=== PATIENT | female | born 1960 | race Caucasian/White ===

== ENCOUNTER 2016-12-10 07:21 | Day surgery (SDC) | payer OTHER ==
[~2016-12-10 07:21] MED LIST: Lactated Ringers 1,000 ML IV SCH; Lidocaine 1%/Sod Bicarbonate in NS 8.4% 1 ML Syringe IV PRN; Sodium Chloride 0.9% 10 ML Syringe FLUSH PRN
--- NOTE | 2016-12-10 08:03 | PCM.PREANE ---
Preanesthetic Assessment - Anesthesia/Transfusion/Family Hx Anesthesia History: Prior Anesthesia Without Reaction Family History of Anesthesia Reaction: No - Review of Systems General: No Symptoms Pulmonary: No Symptoms Cardiovascular: No Symptoms Gastrointestinal: No symptoms Neurological: No Symptoms Other: Reports: Thyroid Problems (hypothyroidism ([place])- controlled with medications ), Depression - Physical Assessment NPO Status Date: 12/09/16 NPO Status Time: 18:30 O2 Sat by Pulse Oximetry: 97 Respiratory Rate: 16 Vital Signs: Last Vital Signs Temp 36.3 C 12/10/16 07:30 Pulse 89 12/10/16 07:30 Resp 16 12/10/16 07:30 BP 129/53 L 12/10/16 07:30 Pulse Ox 97 12/10/16 07:30 Height: 1.7 m Weight: 92.986 kg ASA Class: 2 Mental Status: Alert & Oriented x3 Airway Class: Mallampati = 2 Dentition: Reports: Normal Dentition Thyro-Mental Finger Breadths: 3 Mouth Opening Finger Breadths: 3 ROM/Head Extension: Full Lungs: Clear to auscultation, Normal respiratory effort Cardiovascular: Regular Rate, Regular Rhythm - Allergies Allergies/Adverse Reactions: Allergies Allergy/AdvReac Type Severity Reaction Status Date / Time No Known Allergies Allergy Verified 12/09/16 12:43 - Blood Blood Available: No Product(s) Available: None - Anesthesia Plan Pre-Op Medication Ordered: None - Acknowledgements Anesthesia Type Planned: General Anesthesia (LMA) Pt an Appropriate Candidate for the Planned Anesthesia: Yes Alternatives and Risks of Anesthesia Discussed w Pt/Guardian: Yes Pt/Guardian Understands and Agrees with Anesthesia Plan: Yes PreAnesthesia Questionnaire HEENT History: Reports: Allergic Rhinitis, 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) Other HEENT History: Candidiasis of mouth Cardiovascular History: Reports: None Respiratory History: Reports: None Gastrointestinal History: Reports: None Genitourinary History: Reports: Urinary Incontinence, 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) Other Genitourinary History: Dysuria, stress urinary incontinence, urinary frequency, nocturia 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: , 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) Other OB/BYN History: HPV, 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, bacterial vaginosis, post menopausal bleeding Musculoskeletal History: Reports: 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) Other Musculoskeletal History: Bilateral hip flexor tightness, right plantar fasciitis, trigger thumb, incision tendon sheath of finger, carpal tunnel, lumbago Neurological History: Other Neuro History: Lumbago Psychiatric History: Reports: Depression Endocrine/Metabolic History: Reports: Hypothyroidism Other Endocrine/Metabolic History: Enlarged thyroid Hematologic History: Reports: None Immunologic History: Reports: None Oncologic (Cancer) History: Reports: None Dermatologic History: Reports: None - Infectious Disease History Infectious Disease History: Reports: Human Papilloma Virus (HPV) - Past Surgical History Head Surgeries/Procedures: Reports: None HEENT Surgical History: Reports: None Cardiovascular Surgical History: Reports: None Respiratory Surgical History: Reports: None GI Surgical History: Reports: Appendectomy Female Surgical History: Reports: Section Endocrine Surgical History: Reports: None Neurological Surgical History: Reports: None Musculoskeletal Surgical History: Reports: 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) Other Musculoskeletal Surgeries/Procedures:: Carpal tunnel release Oncologic Surgical History: Reports: None Dermatological Surgical History: Reports: None - SUBSTANCE USE Smoking Status *Q: Current Every Day Smoker (20years 1ppd) Tobacco Use Within Last Twelve Months: Cigarettes Second Hand Smoke Exposure: No Days Per Week of Alcohol Use: 1 Number of Drinks Per Day: 0 Total Drinks Per Week: 0 Recreational Drug Use History: No - HOME MEDS Home Medications: Home Meds Amitriptyline [Elavil] 75 mg PO BEDTIME 06/07/14 [History] Ascorbate Calcium [Vitamin C] 500 mg PO BID 12/09/16 [History] Cholecalciferol (Vitamin D3) [Vitamin D3] 1,000 units PO BID 12/09/16 [History] Clotrimazole [Clotrimazole-3] 5 mg VG BEDTIME 12/09/16 [History] Escitalopram Oxalate [Lexapro] 20 mg PO DAILY 12/09/16 [History] Garlic 1 tab PO DAILY 12/09/16 [History] Immune Support. 7 tsp PO DAILY 12/09/16 [History] Levothyroxine 150 mcg PO DAILY 12/09/16 [History] Magnesium 200 mg PO BID 12/09/16 [History] Turmeric [Curcumin] 1 gm PO DAILY 12/09/16 [History] Vitamin B Complex 1 cap PO DAILY 12/09/16 [History] Zolpidem Tartrate [Ambien] 5 mg PO BEDTIME PRN 12/09/16 [History] buPROPion HCl [Wellbutrin Xl] 300 mg PO DAILY 12/09/16 [History] - CURRENT (IN HOUSE) MEDS Current Meds: Current Medications Lactated Ringer's (Ringers, Lactated) 1,000 mls @ 125 mls/hr IV ASDIRECTED DENIS Lidocaine/Sodium Bicarbonate (Buffered Lidocaine 1% In Ns 8.4%) 0.25 ml IV ONETIME PRN PRN Reason: Prior to IV Start Sodium Chloride (Saline Flush) 10 ml FLUSH ASDIRECTED PRN PRN Reason: Keep Vein Open
[2016-12-10] MEDS ORDERED: Ondansetron 4 MG/2 ML SDV ONE (08:20)
[2016-12-10] MEDS ORDERED: Propofol 200 MG/20 ML SDV ONE (08:20)
[2016-12-10] MEDS ORDERED: Lidocaine 1% 4 ML ONE (08:20)
[2016-12-10] MEDS ORDERED: Dexamethasone 4 MG/ML 5 ML MDV ONE (08:20)
[2016-12-10] MEDS ORDERED: Ketorolac 30 MG/ML SDV ONE (08:20)
[2016-12-10] MEDS ORDERED: Midazolam 1 MG/ML 2 ML SDV ONE (08:20)
[2016-12-10] MEDS ORDERED: fentaNYL 100 MCG/2 ML SDV ONE ×3 (08:20→10:07)
[2016-12-10] MEDS ORDERED: ePHEDrine/Normal Saline 25 MG/5 ML Syringe ONE (09:31)
[2016-12-10] MEDS ORDERED: ceFAZolin 1 GM Vial ONE (09:34)
[2016-12-10] MEDS ORDERED: Ondansetron 4 MG/2 ML SDV IVPUSH PRN (09:47)
[2016-12-10] MEDS ORDERED: Meperidine PF 50 MG/ML Syringe IVPUSH PRN (09:47)
[2016-12-10] MEDS ORDERED: diphenhydrAMINE 50 MG/ML SDV IVPUSH PRN (09:47)
--- NOTE | 2016-12-10 09:50 | PCM.POSTAN ---
POST ANESTHESIA ASSESSMENT - MENTAL STATUS Mental Status: alert, oriented - VITAL SIGNS Pulse Rate: 83 SaO2: 96 Resp Rate: 20 Blood Pressure: 133/73 Temperature: 36.7 C - RESPIRATORY Respiratory Status: respiratory rate WNL, airway patent, O2 saturation stable, supplemental oxygen - CARDIOVASCULAR CV Status: pulse rate WNL, blood pressure stable - GASTROINTESTINAL GI Status: no symptoms - PAIN Pain Score: 0 - POST OP HYDRATION Hydration Status: adequate & stable
[2016-12-10] MEDS ORDERED: Lactated Ringers 1,000 ML ONE (09:54)
--- NOTE | 2016-12-10 10:00 | PCM.OPNOTE ---
- General Post-Op/Procedure Note Date of Surgery/Procedure: 12/10/16 Operative Procedure(s): Colposcopy and Endometrial biopsy Pre Op Diagnosis: LGSIL, JUDD I Mild Dysplasia Post-Op Diagnosis: Same Primary Surgeon: Danny Camp Anesthesia Provider: Lance Bustamante Fluid Replacement, Intraop: 900 Output, Urine Amount: 0 EBL in mLs: 1 Drain/Tube Comments:: none Complications: None Condition: Good Free Text/Narrative:: Patient was transported to operating room #2, and placed under general anesthesia in the low dorsal lithotomy position. Prepared and draped externally in a sterile fashion. The cervix was grasped, and acetic acid staining, followed by Lugol's, concentrated iodine, staining, and evaluation under the colposcope revealed no obvious areas of abnormality are decreased uptake of the Lugol's. Cervical biopsies were taken in multiple areas posteriorly and anteriorly, and sent Pathology for tissue evaluation. In those cervical curettage performed, followed by sounding, uterus to 9 cm, and endometrial curettage performed, scant amount tissue was obtained, consistent with possible atrophic endometrium. All tissue sent to pathology for tissue evaluation. Patient transported post anesthesia care unit in satisfactory condition. No blood transfusion is, required. She'll use Tylenol, Motrin for pain a little, pack, and splint sharp count correct, x2
[2016-12-10] MEDS ORDERED: fentaNYL 100 MCG/2 ML SDV IVPUSH PRN (10:45)
[2016-12-10] MEDS ORDERED: HYDROmorphone 0.5 MG/0.5 ML Syringe IVPUSH PRN (10:45)
[2016-12-10 11:54] VITALS: BP 103/66
== END 2016-12-10 11:40 | disposition home or self-care (01) ==
LOC: JD.SDS 07:21
PROVIDERS: ATTEND Obstetrics & Gynecology
DX: N87.0 Mild cervical dysplasia (principal); E01.0 Iodine-deficiency related diffuse (endemic) goiter; N39.3 Stress incontinence (female) (male); F17.200 Nicotine dependence, unspecified, uncomplicated; Z86.19 Personal history of other infectious and parasitic diseases
CPT/HCPCS: 58100; J0690; J1100; J1885; J2250; J2405; J3010; J7050; J7120; 00940; J2704

== ENCOUNTER 2017-01-12 20:33 | Emergency (ER) | payer OTHER ==
--- NOTE | 2017-01-12 21:02 | EDM.PDOC ---
ED HPI GENERAL MEDICAL PROBLEM - General Chief Complaint: Respiratory Problem Stated Complaint: COUGH CONGESTION FEVER CHILLS Time Seen by Provider: 01/12/17 20:43 Source of Information: Reports: Patient History Limitations: Reports: No Limitations - History of Present Illness INITIAL COMMENTS - FREE TEXT/NARRATIVE: The patient presents with congestion, sinus pressure, runny nose, left ear pain , cough, and chills. This has been going on for about 1 week. [facility] and she was put on some nasal spray. She has a slightly productive cough. She does smoke. She will get bad sinus infections at least once per year. Onset: Gradual Duration: Week(s): (1) Location: Reports: Face Quality: Reports: Pressure Severity: Moderate Improves with: Reports: None Worsens with: Reports: None Associated Symptoms: Reports: Cough, cough w sputum, Fever/Chills, Nausea/ Vomiting (She did vomit twice after coughing) ear, sinus, headche Pain Score (Numeric/FACES): 6 - Related Data Allergies Allergy/AdvReac Type Severity Reaction Status Date / Time No Known Allergies Allergy Verified 01/12/17 20:41 Home Meds: Home Meds Amitriptyline [Elavil] 75 mg PO BEDTIME 06/07/14 [History] Ascorbate Calcium [Vitamin C] 500 mg PO BID 12/09/16 [History] Cholecalciferol (Vitamin D3) [Vitamin D3] 1,000 units PO BID 12/09/16 [History] Escitalopram Oxalate [Lexapro] 20 mg PO DAILY 12/09/16 [History] Garlic 1 tab PO DAILY 12/09/16 [History] Immune Support. 7 tsp PO DAILY 12/09/16 [History] Levothyroxine 150 mcg PO DAILY 12/09/16 [History] Magnesium 200 mg PO BID 12/09/16 [History] Turmeric [Curcumin] 1 gm PO DAILY 12/09/16 [History] Vitamin B Complex 1 cap PO DAILY 12/09/16 [History] Zolpidem Tartrate [Ambien] 5 mg PO BEDTIME PRN 12/09/16 [History] buPROPion HCl [Wellbutrin Xl] 300 mg PO DAILY 12/09/16 [History] Acetaminophen [Tylenol] 650 mg PO Q6H #50 tablet 12/10/16 [Rx] Ibuprofen [Motrin] 600 mg PO Q6H #50 tablet 12/10/16 [Rx] Amoxicillin 1,000 mg PO BID #40 tab 01/12/17 [Rx] Codeine/Promethazine [Phenergan with Codeine] 5 - 10 ml PO Q6HR PRN #300 ml [Rx] Past Medical History HEENT History: Reports: Allergic Rhinitis, 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) Other HEENT History: Candidiasis of mouth, canker sore Cardiovascular History: Reports: None Respiratory History: Reports: Bronchitis, Recurrent Gastrointestinal History: Reports: None Genitourinary History: Reports: Urinary Incontinence, 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) Other Genitourinary History: Dysuria, stress urinary incontinence, urinary frequency, nocturia MECHANICAL INTERN History: Reports: , 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) Other OB/BYN History: HPV, 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, bacterial vaginosis, post menopausal bleeding, recent D/C Musculoskeletal History: Reports: 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) Other Musculoskeletal History: Bilateral hip flexor tightness, right plantar fasciitis, trigger thumb, incision tendon sheath of finger, carpal tunnel, lumbago Other Neuro History: Lumbago Psychiatric History: Reports: Anxiety, Depression Endocrine/Metabolic History: Reports: Hypothyroidism Other Endocrine/Metabolic History: Enlarged thyroid, Yoshi's disease Hematologic History: Reports: None Immunologic History: Reports: None Oncologic (Cancer) History: Reports: None Dermatologic History: Reports: None - Infectious Disease History Infectious Disease History: Reports: Human Papilloma Virus (HPV) - Past Surgical History Head Surgeries/Procedures: Reports: None HEENT Surgical History: Reports: None Cardiovascular Surgical History: Reports: None Respiratory Surgical History: Reports: None GI Surgical History: Reports: Appendectomy Female Surgical History: Reports: Section Endocrine Surgical History: Reports: None Neurological Surgical History: Reports: None Musculoskeletal Surgical History: Reports: 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) Other Musculoskeletal Surgeries/Procedures:: Carpal tunnel release Oncologic Surgical History: Reports: None Dermatological Surgical History: Reports: None Social & Family History - Family History Family Medical History: Noncontributory - Tobacco Use Smoking Status *Q: Current Every Day Smoker Years of Tobacco use: 30 Packs/Tins Daily: 0.5 Used Tobacco, but Quit: No Second Hand Smoke Exposure: No - Caffeine Use Caffeine Use: Reports: Soda - Alcohol Use Days Per Week of Alcohol Use: 1 Number of Drinks Per Day: 0 Total Drinks Per Week: 0 - Recreational Drug Use Recreational Drug Use: No Drug Use in Last 12 Months: No ED ROS GENERAL - Review of Systems Review Of Systems: See Below Constitutional: Reports: Chills, Weakness, Fatigue. Denies: Fever HEENT: Reports: Ear Pain (left), Other (sores in her mouth) Respiratory: Reports: Cough, Sputum. Denies: Shortness of Breath Cardiovascular: Reports: No Symptoms Endocrine: Reports: No Symptoms GI/Abdominal: Reports: No Symptoms : Reports: No Symptoms ED EXAM, GENERAL - Physical Exam Exam: See Below Exam Limited By: No Limitations General Appearance: Alert, No Apparent Distress Ears: Normal External Exam, Normal Canal, Other (Fluid behind the left TM) Nose: Normal Inspection Throat/Mouth: Other (Mild erythema of the oropharynx) Head: Atraumatic, Normocephalic Neck: Normal Inspection Respiratory/Chest: No Respiratory Distress, Lungs Clear, Normal Breath Sounds Cardiovascular: Regular Rate, Rhythm, No Edema, No Murmur GI/Abdominal: Soft, Non-Tender, No Organomegaly, No Mass Extremities: Normal Inspection Neurological: Alert, Oriented, No Motor/Sensory Deficits Course - Vital Signs Last Recorded V/S: Last Vital Signs Temp 97.7 F 01/12/17 20:38 Pulse 100 01/12/17 20:38 Resp 18 01/12/17 20:38 BP 169/89 H 01/12/17 20:38 Pulse Ox 96 01/12/17 20:38 Departure - Departure Time of Disposition: 21:00 Disposition: Home, Self-Care 01 Condition: Good Clinical Impression: Bronchitis Sinusitis Qualifiers: Sinusitis location: frontal Chronicity: acute Recurrence: recurrent Qualified Code(s): J01.11 - Acute recurrent frontal sinusitis - Discharge Information Prescriptions: Codeine/Promethazine [Phenergan with Codeine] 5 - 10 ml PO Q6HR PRN #300 ml PRN Reason: Cough Amoxicillin 1,000 mg PO BID #40 tab Referrals: Rena Mccormack PA-C [Primary Care Provider] - Forms: ED Department Discharge, Return to Work/School Form Additional Instructions: Take the amoxicillin 2 pills 2 times per day for 10 days. Take the phenergan with codeine 5 to 10ml every 6 hours as needed for coughing. Continue with the nasal spray and neti pots. Please return if you are worse.
== END 2017-01-12 21:16 | disposition home or self-care (01) ==
LOC: JD.ED 20:33
CPT/HCPCS: 99283

== ENCOUNTER 2017-07-10 13:37 | Emergency (ER) | payer OTHER ==
[2017-07-10 13:48] VITALS: BP 124/69
--- NOTE | 2017-07-10 14:39 | EDM.PDOC ---
ED HPI GENERAL MEDICAL PROBLEM - General Chief Complaint: ENT Problem Stated Complaint: LEFT EAR/THROAT PAIN Time Seen by Provider: 07/10/17 14:12 Source of Information: Reports: Patient History Limitations: Reports: No Limitations - History of Present Illness INITIAL COMMENTS - FREE TEXT/NARRATIVE: Patient is a 57-year-old female who presents to the ED complaining of left- sided ear pain, throat pain, and teeth pain that started Jose morning. Patient states since then the pain has been waxing and waning in intensity constant in nature sharp/throbbing/achy sensation. Relieved with taking hydrocodone which was left over from previous oral surgery conducted on the right side of her mouth the first part of June. She's also been taking ibuprofen and Tylenol with some relief. She was concerned that she may have strep throat or any urine infection. Denies any body aches, fever, nausea/ vomiting, change in appetite, difficulty swallowing, stiff neck, or any additional complaints. There's been no recent sick exposures. States her teeth are fairly well on the left side. She has no sinus tenderness. But notes there is been some intermittent sinus congestion recently. Ear Pain Score (Numeric/FACES): 3 - Related Data Allergies Allergy/AdvReac Type Severity Reaction Status Date / Time No Known Allergies Allergy Verified 01/12/17 20:41 Home Meds: Home Meds Amitriptyline [Elavil] 75 mg PO BEDTIME 06/07/14 [History] Ascorbate Calcium [Vitamin C] 500 mg PO BID 12/09/16 [History] Cholecalciferol (Vitamin D3) [Vitamin D3] 1,000 units PO BID 12/09/16 [History] Escitalopram Oxalate [Lexapro] 20 mg PO DAILY 12/09/16 [History] Garlic 1 tab PO DAILY 12/09/16 [History] Immune Support. 7 tsp PO DAILY 12/09/16 [History] Levothyroxine 150 mcg PO DAILY 12/09/16 [History] Magnesium 200 mg PO BID 12/09/16 [History] Turmeric [Curcumin] 1 gm PO DAILY 12/09/16 [History] Vitamin B Complex 1 cap PO DAILY 12/09/16 [History] Zolpidem Tartrate [Ambien] 5 mg PO BEDTIME PRN 12/09/16 [History] buPROPion HCl [Wellbutrin Xl] 300 mg PO DAILY 12/09/16 [History] Acetaminophen [Tylenol] 650 mg PO Q6H #50 tablet 12/10/16 [Rx] Ibuprofen [Motrin] 600 mg PO Q6H #50 tablet 12/10/16 [Rx] Past Medical History HEENT History: Reports: Allergic Rhinitis, 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) Other HEENT History: Candidiasis of mouth, canker sore Cardiovascular History: Reports: None Respiratory History: Reports: Bronchitis, Recurrent Gastrointestinal History: Reports: None Genitourinary History: Reports: Urinary Incontinence, 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) Other Genitourinary History: Dysuria, stress urinary incontinence, urinary frequency, nocturia 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: , 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) Other OB/BYN History: HPV, 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, bacterial vaginosis, post menopausal bleeding, recent D/C Musculoskeletal History: Reports: 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) Other Musculoskeletal History: Bilateral hip flexor tightness, right plantar fasciitis, trigger thumb, incision tendon sheath of finger, carpal tunnel, lumbago Other Neuro History: Lumbago Psychiatric History: Reports: Anxiety, Depression Endocrine/Metabolic History: Reports: Hypothyroidism Other Endocrine/Metabolic History: Enlarged thyroid, Yoshi's disease Hematologic History: Reports: None Immunologic History: Reports: None Oncologic (Cancer) History: Reports: None Dermatologic History: Reports: None - Infectious Disease History Infectious Disease History: Reports: Human Papilloma Virus (HPV) - Past Surgical History Head Surgeries/Procedures: Reports: None HEENT Surgical History: Reports: None Cardiovascular Surgical History: Reports: None Respiratory Surgical History: Reports: None GI Surgical History: Reports: Appendectomy Female Surgical History: Reports: Section Endocrine Surgical History: Reports: None Neurological Surgical History: Reports: None Musculoskeletal Surgical History: Reports: 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) Other Musculoskeletal Surgeries/Procedures:: Carpal tunnel release Oncologic Surgical History: Reports: None Dermatological Surgical History: Reports: None Social & Family History - Family History Family Medical History: Noncontributory - Tobacco Use Smoking Status *Q: Current Every Day Smoker Years of Tobacco use: 20 Packs/Tins Daily: 1 Used Tobacco, but Quit: No Second Hand Smoke Exposure: No - Caffeine Use Caffeine Use: Reports: Soda - Alcohol Use Days Per Week of Alcohol Use: 1 Number of Drinks Per Day: 0 Total Drinks Per Week: 0 - Recreational Drug Use Recreational Drug Use: No Drug Use in Last 12 Months: No ED ROS ENT - Review of Systems Review Of Systems: ROS reveals no pertinent complaints other than HPI. ED EXAM, ENT - Physical Exam Exam: See Below Exam Limited By: No Limitations General Appearance: Alert, WD/WN, No Apparent Distress, Other (No facial swelling noted) Eye Exam: Bilateral Eye: Normal Inspection, PERRL Ears: Normal External Exam, Normal Canal, Hearing Grossly Normal, Normal TMs Nose: Normal Inspection, Normal Mucousa, No Blood Mouth/Throat: Normal Inspection, Normal Gums, Normal Lips, Other (Mild swelling noted to the left tonsillar area. No uvula deviation. No peritonsillar abscess. No exudates noted.) Head: Atraumatic, Normocephalic Neck: Normal Inspection, Supple, Full Range of Motion, Other (Mild tenderness noted along the left anterior cervical lymph nodes no lymphadenopathy present). No: Lymphadenopathy (L), Lymphadenopathy (R) Respiratory/Chest: No Respiratory Distress, Lungs Clear Cardiovascular: Normal Peripheral Pulses, Regular Rate, Rhythm Neurological: Alert, Oriented, CN II-XII Intact, Normal Cognition, No Motor/ Sensory Deficits Psychiatric: Normal Affect, Normal Mood Skin: Warm, Dry, Intact, Normal Color Course - Vital Signs Last Recorded V/S: Last Vital Signs Temp 96.4 F 07/10/17 13:46 Pulse 88 07/10/17 13:46 Resp 20 07/10/17 13:46 BP 124/69 07/10/17 13:46 Pulse Ox 100 07/10/17 13:46 - Orders/Labs/Meds Orders: Active Orders 24 hr Category Date Time Status CULTURE STREP A CONFIRMATION [] Stat Lab 07/10/17 14:39 Results STREP SCRN A RAPID W CULT CONF [RM] Stat Lab 07/10/17 14:39 Results - Re-Assessments/Exams Free Text/Narrative Re-Assessment/Exam: Left-sided tonsillar swelling noted. No uvular deviation. No findings concerning for peritonsillar abscess. Ordered a strep screen to be obtained. 07/10/17 15:24 Strep screen was negative. Patient's wishing to be discharged home. Discharge instructions as documented. Departure - Departure Time of Disposition: 15:25 Disposition: Home, Self-Care 01 Condition: Good Clinical Impression: Ear pain, left, Swelling of tonsil - Discharge Information Instructions: Tonsillitis, [id number] Referrals: Sara Hodges PA [Primary Care Provider] - Forms: ED Department Discharge Additional Instructions: As discussed strep screen was negative. Due to duration of symptoms suspect this is viral in nature and will resolve on its own accord over the next few days. Treatment will be symptomatic care including: Ibuprofen 600 mg every 6 hours and Tylenol 650 mg every 6 hours in alternating fashion. Can utilize over- the-counter Chloraseptic spray as needed for pain. Gargle with warm saltwater as needed throughout the course of the day. Follow-up with your primary care provider over the next few days if symptoms have not drastically improved. Return to the ED if you develop any new or worsening symptoms. - My Orders Last 24 Hours: My Active Orders 07/10/17 14:39 CULTURE STREP A CONFIRMATION [RM] Stat STREP SCRN A RAPID W CULT CONF [RM] Stat - Assessment/Plan Last 24 Hours: My Active Orders 07/10/17 14:39 CULTURE STREP A CONFIRMATION [RM] Stat STREP SCRN A RAPID W CULT CONF [RM] Stat
== END 2017-07-10 15:32 | disposition home or self-care (01) ==
LOC: JD.ED 13:37 → SUPCPDRO 13:37 → JD.ED 15:32
DX: H92.02 Otalgia, left ear (principal); R22.1 Localized swelling, mass and lump, neck; F17.210 Nicotine dependence, cigarettes, uncomplicated; Z79.899 Other long term (current) drug therapy
CPT/HCPCS: 87081; 87430; 99282; 99283

== ENCOUNTER 2018-01-11 06:44 | Emergency (ER) | payer OTHER ==
[2018-01-11 06:58] VITALS: BP 166/70
--- NOTE | 2018-01-11 07:01 | EDM.PDOC ---
ED HPI GENERAL MEDICAL PROBLEM - General Chief Complaint: Gastrointestinal Problem Stated Complaint: HEMORRHOIDS Time Seen by Provider: 01/11/18 07:00 Source of Information: Reports: Patient History Limitations: Reports: No Limitations - History of Present Illness INITIAL COMMENTS - FREE TEXT/NARRATIVE: 57-year-old female presents to the ED with painful external hemorrhoids. States they started yesterday. She denies diarrhea or constipation issues. She's had a hemorrhoids in the past. States she did have 2 bowel movements overnight. One was rather tough and hard to push out. Currently having significant pain right perianal area. Hard to walk hard to sit. 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 7 tsp PO DAILY 12/09/16 [History] Levothyroxine 150 mcg PO DAILY 12/09/16 [History] Magnesium 200 mg PO BID 12/09/16 [History] Turmeric [Curcumin] 1 gm PO DAILY 12/09/16 [History] Vitamin B Complex 1 cap PO DAILY 12/09/16 [History] Zolpidem Tartrate [Ambien] 5 mg PO BEDTIME PRN 12/09/16 [History] buPROPion HCl [Wellbutrin Xl] 300 mg PO DAILY 12/09/16 [History] Acetaminophen [Tylenol] 650 mg PO Q6H #50 tablet 12/10/16 [Rx] Ibuprofen [Motrin] 600 mg PO Q6H #50 tablet 12/10/16 [Rx] FLUoxetine HCl [Prozac] 10 mg PO DAILY 01/11/18 [History] Hydrocortisone [Anusol-Hc] 30 gm TP QID #1 cream..g. 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: , 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) Other OB/BYN History: HPV, 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, bacterial vaginosis, post menopausal bleeding, recent D/C Musculoskeletal History: Reports: 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) Other Musculoskeletal History: Bilateral hip flexor tightness, right plantar fasciitis, trigger thumb, incision tendon sheath of finger, carpal tunnel, lumbago Other Neuro History: Lumbago Psychiatric History: Reports: Anxiety, Depression Endocrine/Metabolic History: Reports: Hypothyroidism Other Endocrine/Metabolic History: Enlarged thyroid, Yoshi's disease Hematologic History: Reports: None Immunologic History: Reports: None Oncologic (Cancer) History: Reports: None Dermatologic History: Reports: None - Infectious Disease History Infectious Disease History: Reports: Human Papilloma Virus (HPV) - Past Surgical History Head Surgeries/Procedures: Reports: None HEENT Surgical History: Reports: None Cardiovascular Surgical History: Reports: None Respiratory Surgical History: Reports: None GI Surgical History: Reports: Appendectomy Female Surgical History: Reports: Section Endocrine Surgical History: Reports: None Neurological Surgical History: Reports: None Musculoskeletal Surgical History: Reports: 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) Other Musculoskeletal Surgeries/Procedures:: Carpal tunnel release Oncologic Surgical History: Reports: None Dermatological Surgical History: Reports: None Social & Family History - Family History Family Medical History: Noncontributory - Caffeine Use Caffeine Use: Reports: Soda - Living Situation & Occupation Living situation: Reports: Occupation: Employed ED ROS GENERAL - Review of Systems Review Of Systems: See Below Constitutional: Reports: Fatigue (From not sleeping.). Denies: Fever, Chills, Malaise, Weakness HEENT: Reports: No Symptoms Respiratory: Reports: No Symptoms Cardiovascular: Reports: No Symptoms Endocrine: Reports: No Symptoms GI/Abdominal: Reports: Other (External hemorrhoids.) : Reports: Dysuria, Frequency, Other (She states she discovered over urinary tract infection but feels her symptoms may have returned.) Musculoskeletal: Reports: No Symptoms Skin: Reports: Other (Pain and swelling) Neurological: Reports: No Symptoms ( rectum.) ED EXAM, GI/ABD - Physical Exam Exam: See Below Exam Limited By: No Limitations General Appearance: Alert, WD/WN, Anxious, Moderate Distress Eyes: Bilateral: Normal Appearance GI/Abdominal Exam: Normal Bowel Sounds, Soft, Non-Tender, No Organomegaly, No Abnormal Bruit, No Mass, Pelvis Stable Rectal (Female) Exam: Hemorrhoids (She has a large external hemorrhoid at the 3 o'clock position approximately inch in length and half centimeter in width. It is engorged.) Back Exam: Normal Inspection, Full Range of Motion Extremities: Normal Inspection, Normal Range of Motion, Non-Tender, No Pedal Edema Neurological: Alert, Oriented, CN II-XII Intact, Normal Cognition Psychiatric: Anxious Skin Exam: Warm, Dry, Intact, Normal Color ED I&D PROCEDURES - I&D Skin prep: Chlorhexidine (Hibiciens) (Thrombosed external hemorrhoid anus.) Local anesthesia - Lidocaine (Xylocaine): 1% with EPI Local Anesthetic Volume: 2cc Area Incised With: 15 Blade Drainage: Other Probed to Break Up Loculations: Yes Packed With: None Complications: No Course - Vital Signs Last Recorded V/S: Last Vital Signs Temp 36.4 C 01/11/18 06:51 Pulse 94 01/11/18 06:51 Resp 20 01/11/18 06:51 BP 166/70 H 01/11/18 06:51 Pulse Ox 98 01/11/18 06:51 - Orders/Labs/Meds Orders: Active Orders 24 hr Category Date Time Status URINALYSIS W/MICROSCOPIC [UA W/MICROSCOPIC] [URIN] Stat Lab 01/11/18 07:20 Ordered Labs: Laboratory Tests 01/11/18 Range/Units 07:20 Urine Color Yellow (Yellow) Urine Appearance Clear (Clear) Urine pH 7.0 (5.0-8.0) Ur Specific Hector 1.015 (1.005-1.030) Urine Protein Negative (Negative) Urine Glucose (UA) Negative (Negative) Urine Ketones Negative (Negative) Urine Occult Blood Negative (Negative) Urine Nitrite Negative (Negative) Urine Bilirubin Negative (Negative) Urine Urobilinogen 0.2 (0.2-1.0) Ur Leukocyte Esterase Negative (Negative) Urine RBC Not seen (0-5) /hpf Urine WBC 0-5 (0-5) /hpf Ur Epithelial Cells 0-5 (0-5) /hpf Urine Bacteria Not seen (FEW) /hpf Urine Mucus Few (FEW) /hpf Meds: Medications Discontinued Medications Generic Name Dose Route Start Last Admin Trade Name Jocelyne PRN Reason Stop Dose Admin Lidocaine/Epinephrine 20 ml 01/11/18 07:08 01/11/18 07:33 Xylocaine 1% With Epinephrine 1:100,000 INJECT 01/11/18 07:09 20 ml ONETIME ONE Administration Ondansetron HCl 4 mg 01/11/18 07:10 01/11/18 07:32 Zofran Odt PO 01/11/18 07:11 4 mg ONETIME ONE Administration Oxycodone/Acetaminophen 2 tab 01/11/18 07:10 01/11/18 07:33 Percocet 325-5 Mg PO 01/11/18 07:11 2 tab ONETIME ONE Administration Witch Anupama 1 pad 01/11/18 07:07 01/11/18 07:33 Tucks TOP 01/11/18 07:08 1 pad ONETIME ONE Administration - Radiology Interpretation Free Text/Narrative:: 57-year-old female presents the ED with severe pain from an external hemorrhoid at the 3 o'clock position. Hemorrhoid started yesterday. Examination confirms a 2.5 cm by half centimeter hemorrhoid at the 3 o'clock position. Post plan of treatment is incision and drainage with removal of clot. Lidocaine patches alternating with tox patches for the next 2 days. Pain medication Percocet one or 2 every 4-6 hours needed for pain relief with a stool softer 1 scoop of MiraLAX daily. Sits baths 3-4 times daily for the next 3-4 days until the hemorrhoid settles. - Re-Assessments/Exams Free Text/Narrative Re-Assessment/Exam: 01/11/18 08:00 consent obtained. Patient underwent incision and drainage of thrombosed external hemorrhoid with removal of 3 small clots. He tolerated the procedure well. Treatment at home will be to apply Anusol HC ointment for cream to the area after sitz bath 4 times daily tox pad over top of this and then 4 x 4's. I will place her on MiraLAX powder 17 g daily for the next week to 10 days to keep the stool soft. Percocet tablet 1 tablet every 4-6 hours necessary for pain relief. Note given to excuse her from the work place for the next 48 hours. 01/11/18 08:05 urinalysis is normal today. With no signs of infection Departure - Departure Time of Disposition: 08:01 Disposition: Home, Self-Care 01 Condition: Fair Clinical Impression: Thrombosed external hemorrhoid - Discharge Information Prescriptions: Hydrocortisone [Anusol-Hc] 30 gm TP QID #1 cream..g. oxyCODONE HCl/Acetaminophen [Percocet 5-325 mg Tablet] 1 - 2 each PO Q4H PRN # 12 tablet PRN Reason: pain relief. Instructions: Hemorrhoids, [id number] Referrals: Minda Naranjo PA-C [Primary Care Provider] - Forms: ED Department Discharge, ED Return to Work/School Form Additional Instructions: Evaluation emergency room today in regards to thrombosed external hemorrhoid which was quite large. Procedure done was incision and drainage of the thrombosed external hemorrhoid with removal of 3 small clots. Minute home his sitz baths which means soaking in hot water's you can stand for 5-10 minutes 4 times daily for the next 3-4 days. After getting out of the bath apply Anusol HC cream to the area and then tox pad folded over top of the hemorrhoid and then protective dressing. This will need to be done for at least 3 days and possibly 4. Suggest MiraLAX powder 17 g or 1 scoop daily to keep her bowels soft to prevent constipation issues over the next week to 10 days until the hemorrhoid heals. May use Percocet tablet 1 tablet every 4-6 hours as necessary for pain relief. Lying on your stomach will help the hemorrhoid shrink a bit as well. Off work today and tomorrow to allow this area to start to settle in terms of pain and swelling. - My Orders Last 24 Hours: My Active Orders 01/11/18 07:20 URINALYSIS W/MICROSCOPIC [UA W/MICROSCOPIC] [URIN] Stat - Assessment/Plan Last 24 Hours: My Active Orders 01/11/18 07:20 URINALYSIS W/MICROSCOPIC [UA W/MICROSCOPIC] [URIN] Stat
[2018-01-11] MEDS ORDERED: Witch Hazel Medicated Pads 100/Jar TOP ONE (07:07)
[2018-01-11] MEDS ORDERED: Lidocaine 1% with EPINEPHrine 1:100,000 20 ML MDV INJECT ONE (07:08)
[2018-01-11] MEDS ORDERED: Acetaminophen/oxyCODONE 325-5 MG Tab PO ONE (07:10)
[2018-01-11] MEDS ORDERED: Ondansetron 4 MG Tab.DIS PO ONE (07:10)
== END 2018-01-11 08:15 | disposition home or self-care (01) ==
LOC: JD.ED 06:44
DX: K64.5 Perianal venous thrombosis (principal); E03.9 Hypothyroidism, unspecified; Z79.899 Other long term (current) drug therapy
CPT/HCPCS: 46083; 81001; 99283; A9270; 10060

== ENCOUNTER 2018-11-07 17:21 | Emergency (ER) | payer OTHER ==
[2018-11-07 18:11] VITALS: BP 153/72
--- NOTE | 2018-11-07 18:31 | EDM.PDOC ---
ED HPI GENERAL MEDICAL PROBLEM - General Chief Complaint: Laceration Stated Complaint: RIGHT BIG TOE LACERATION Time Seen by Provider: 11/07/18 18:23 Source of Information: Reports: Patient History Limitations: Reports: No Limitations - History of Present Illness INITIAL COMMENTS - FREE TEXT/NARRATIVE: The patient presents with right toe pain. She dropped a metal sculpture on her right great toe. She has 2 puncture wound to the toe. She has moderate amount of pain. She just saw a vp cardiovascular service line today for an ingrown toenail. She could not put much weight on the toe. Her tetanus is up to date. Onset: Sudden Duration: Minutes: Location: Reports: Lower Extremity, Right (Great toe) Quality: Reports: Sharp Severity: Moderate Improves with: Reports: Immobilization Worsens with: Reports: Movement Context: Reports: Trauma (She dropped a metal object on her toe) Associated Symptoms: Reports: No Other Symptoms Right Toe-[place] Pain Score (Numeric/FACES): 5 - Related Data Allergies Allergy/AdvReac Type Severity Reaction Status Date / Time No Known Allergies Allergy Verified 11/07/18 18:11 Home Meds: Home Meds Amitriptyline [Elavil] 75 mg PO BEDTIME 06/07/14 [History] Ascorbate Calcium [Vitamin C] 500 mg PO BID 12/09/16 [History] Cholecalciferol (Vitamin D3) [Vitamin D3] 1,000 units PO BID 12/09/16 [History] Garlic 1 tab PO DAILY 12/09/16 [History] Immune Support. 7 tsp PO DAILY 12/09/16 [History] Levothyroxine 150 mcg PO DAILY 12/09/16 [History] Magnesium 200 mg PO BID 12/09/16 [History] Turmeric [Curcumin] 1 gm PO DAILY 12/09/16 [History] Vitamin B Complex 1 cap PO DAILY 12/09/16 [History] Zolpidem Tartrate [Ambien] 5 mg PO BEDTIME PRN 12/09/16 [History] buPROPion HCl [Wellbutrin Xl] 300 mg PO DAILY 12/09/16 [History] Acetaminophen [Tylenol] 650 mg PO Q6H #50 tablet 12/10/16 [Rx] Ibuprofen [Motrin] 600 mg PO Q6H #50 tablet 12/10/16 [Rx] FLUoxetine HCl [Prozac] 10 mg PO DAILY 01/11/18 [History] Hydrocortisone [Anusol-Hc] 30 gm TP QID #1 cream..g. 01/11/18 [Rx] oxyCODONE HCl/Acetaminophen [Percocet 5-325 mg Tablet] 1 - 2 each PO Q4H PRN # 12 tablet 01/11/18 [Rx] Cephalexin [Keflex] 500 mg PO QID #40 capsule 11/07/18 [Rx] Hydrocodone/Acetaminophen [Hydrocodon-Acetaminophen 5-325] 1 - 2 each PO Q6HR PRN #20 tablet 11/07/18 [Rx] Past Medical History HEENT History: Reports: Allergic Rhinitis, 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) Other HEENT History: Candidiasis of mouth, canker sore Cardiovascular History: Reports: None Respiratory History: Reports: Bronchitis, Recurrent Gastrointestinal History: Reports: None Genitourinary History: Reports: Urinary Incontinence, 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) Other Genitourinary History: Dysuria, stress urinary incontinence, urinary frequency, nocturia 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: , 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: HPV, 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, bacterial vaginosis, post menopausal bleeding, recent D/C Musculoskeletal History: Reports: 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) Other Musculoskeletal History: Bilateral hip flexor tightness, right plantar fasciitis, trigger thumb, incision tendon sheath of finger, carpal tunnel, lumbago Other Neuro History: Lumbago Psychiatric History: Reports: Anxiety, Depression Endocrine/Metabolic History: Reports: Hypothyroidism Other Endocrine/Metabolic History: Enlarged thyroid, Yoshi's disease Hematologic History: Reports: None Immunologic History: Reports: None Oncologic (Cancer) History: Reports: None Dermatologic History: Reports: None - Infectious Disease History Infectious Disease History: Reports: Human Papilloma Virus (HPV) - Past Surgical History Head Surgeries/Procedures: Reports: None HEENT Surgical History: Reports: None Cardiovascular Surgical History: Reports: None Respiratory Surgical History: Reports: None GI Surgical History: Reports: Appendectomy Female Surgical History: Reports: Section Endocrine Surgical History: Reports: None Neurological Surgical History: Reports: None Musculoskeletal Surgical History: Reports: 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) Other Musculoskeletal Surgeries/Procedures:: Carpal tunnel release Oncologic Surgical History: Reports: None Dermatological Surgical History: Reports: None Social & Family History - Family History Family Medical History: Noncontributory - Tobacco Use Smoking Status *Q: Current Every Day Smoker Years of Tobacco use: 20 Packs/Tins Daily: 1 - Caffeine Use Caffeine Use: Reports: Soda - Recreational Drug Use Recreational Drug Use: No - Living Situation & Occupation Living situation: Reports: Occupation: Employed ED ROS GENERAL - Review of Systems Review Of Systems: See Below Constitutional: Reports: No Symptoms HEENT: Reports: No Symptoms Respiratory: Reports: No Symptoms Cardiovascular: Reports: No Symptoms Endocrine: Reports: No Symptoms GI/Abdominal: Reports: No Symptoms : Reports: No Symptoms Musculoskeletal: Reports: Other (2 puncture wounds to the great toe on the lateral aspect. She has tenderness to ther toe. She has good capillary refill. ) ED EXAM, SKIN/RASH Exam: See Below Exam Limited By: No Limitations General Appearance: Alert, No Apparent Distress Ears: Normal External Exam Nose: Normal Inspection Head: Atraumatic, Normocephalic Neck: Normal Inspection Respiratory/Chest: No Respiratory Distress, Lungs Clear, Normal Breath Sounds Cardiovascular: Regular Rate, Rhythm, No Edema, No Murmur GI/Abdominal: Soft, Non-Tender, No Organomegaly, No Mass Extremities: Other (Moderate edema and 2 puncture wounds to the lateral part of the great toe. Good capillary refill and sensation distally.) ED SKIN PROCEDURES - Laceration/Wound Repair Right Toe - Great Lac/Wound length In cm: 3 Appearance: Subcutaneous, Irregular Distal NVT: Neuro & Vascular Intact, No Tendon Injury Anesthetic Type: Local Local Anesthesia - Lidocaine (Xylocaine): 1% Plain Skin Prep: Providone-Iodine (Betadine) Exploration/Debridement/Repair: Wound Explored, In a Bloodless Field, Explored to Base Closed with: Sutures Suture Size: 4-0 # of Sutures: 6 Suture Type: Nylon, Interrupted, Simple Tetanus Status Addressed: Yes Complications: No Course - Vital Signs Last Recorded V/S: Last Vital Signs Temp 97.8 F 11/07/18 18:05 Pulse 99 11/07/18 18:05 Resp 16 11/07/18 18:05 BP 153/72 H 11/07/18 18:05 Pulse Ox 95 11/07/18 18:05 - Orders/Labs/Meds Orders: Active Orders 24 hr Category Date Time Status Toes Great Toe Rt T5 [CR] Stat Exams 11/07/18 18:30 Taken Lidocaine 1% [Xylocaine 1%] Med 11/07/18 20:00 Once 10 ml INJECT ONETIME ONE cefTRIAXone [Rocephin] 1 gm Med 11/07/18 19:45 Active Lidocaine 1% [Xylocaine 1%] 2.1 ml IM Q24H Medication Orders Ceftriaxone Sodium 1 gm/ (Lidocaine HCl 2.1 ml) 0 gm IM Q24H DENIS Lidocaine HCl (Xylocaine 1%) 10 ml INJECT ONETIME ONE Stop: 11/07/18 20:01 Meds: Medications Generic Name Dose Route Start Last Admin Trade Name Freq PRN Reason Stop Dose Admin Ceftriaxone Sodium 1 gm/ 0 gm 11/07/18 19:45 Lidocaine HCl 2.1 ml IM Q24H DENIS Lidocaine HCl 10 ml 11/07/18 20:00 Xylocaine 1% INJECT 11/07/18 20:01 ONETIME ONE Discontinued Medications Generic Name Dose Route Start Last Admin Trade Name Freq PRN Reason Stop Dose Admin Hydrocodone Bitart/Acetaminophen 2 tab 11/07/18 18:40 11/07/18 18:53 [place] 325-5 Mg PO 11/07/18 18:41 2 tab ONETIME ONE Administration - Re-Assessments/Exams Free Text/Narrative Re-Assessment/Exam: 11/07/18 19:30 I ordered an x-ray of her toe and gave her some hydrocodone. It appears she has a fracture. This is an open fracture. I will give her a shot of rocephin 1gram IM. 11/07/18 19:55 I used 6 nylon 4-0 sutures to close the wound. I will get her in a post op shoe and get her on keflex and something for the pain and follow up with Dr Hill. Departure - Departure Time of Disposition: 20:00 Disposition: Home, Self-Care 01 Condition: Good Clinical Impression: Open fracture of right great toe Qualifiers: Encounter type: initial encounter Phalanx: distal Fracture alignment: nondisplaced Qualified Code(s): S92.424B - Nondisplaced fracture of distal phalanx of right great toe, initial encounter for open fracture - Discharge Information *PRESCRIPTION DRUG MONITORING PROGRAM REVIEWED*: No *COPY OF PRESCRIPTION DRUG MONITORING REPORT IN PATIENT JESSICA: No Prescriptions: Hydrocodone/Acetaminophen [Hydrocodon-Acetaminophen 5-325] 1 - 2 each PO Q6HR PRN #20 tablet PRN Reason: Pain Cephalexin [Keflex] 500 mg PO QID #40 capsule Referrals: Minda Naranjo PA-C [Primary Care Provider] - Zach Hill II, DPM [Physician] - 1 Week Forms: ED Department Discharge Additional Instructions: Soak your toe in warm soapy water 2 times per day and apply antibiotic ointment after. Have the sutures removed in 1 week. Wear the post op shoe. Follow up with Dr Hill in 1 week. - My Orders Last 24 Hours: My Active Orders 11/07/18 18:30 Toes Great Toe Rt T5 [CR] Stat 11/07/18 19:45 cefTRIAXone [Rocephin] 1 gm Lidocaine 1% [Xylocaine 1%] 2.1 ml IM Q24H 11/07/18 20:00 Lidocaine 1% [Xylocaine 1%] 10 ml INJECT ONETIME ONE - Assessment/Plan Last 24 Hours: My Active Orders 11/07/18 18:30 Toes Great Toe Rt T5 [CR] Stat 11/07/18 19:45 cefTRIAXone [Rocephin] 1 gm Lidocaine 1% [Xylocaine 1%] 2.1 ml IM Q24H 11/07/18 20:00 Lidocaine 1% [Xylocaine 1%] 10 ml INJECT ONETIME ONE
[2018-11-07] MEDS ORDERED: Acetaminophen/HYDROcodone 325-5 MG Tab PO ONE (18:40)
[2018-11-07] MEDS ORDERED: cefTRIAXone 1 GM, Lidocaine 1% 2.1 ML IM SCH ×2 (19:45)
[2018-11-07] MEDS ORDERED: Lidocaine 1% 10 ML MDV INJECT ONE (20:00)
--- NOTE | 2018-11-08 06:22 | CR ---
Right first toe: Four views of the right first toe were obtained. Comparison: No prior toe exam. Fracture is identified within the corner base of the distal phalanx. Very minimal displacement is noted on the lateral view. Soft tissue swelling is seen. Minimal degenerative change is noted within the first MTP joint. Impression: 1. Corner fracture as noted above. 2. Minimal degenerative change. Diagnostic code #3
== END 2018-11-07 20:36 | disposition home or self-care (01) ==
LOC: JD.ED 17:21
DX: S92.424B Nondisplaced fracture of distal phalanx of right great toe, initial encounter for open fracture (principal); F17.210 Nicotine dependence, cigarettes, uncomplicated; F41.9 Anxiety disorder, unspecified; F32.9 Major depressive disorder, single episode, unspecified; E03.9 Hypothyroidism, unspecified; Z79.899 Other long term (current) drug therapy; W20.8XXA Other cause of strike by thrown, projected or falling object, initial encounter
CPT/HCPCS: 12002; 73660; 96372; 99283; A9270; J0696; J2001

== ENCOUNTER 2020-02-09 21:06 | Emergency (ER) | payer OTHER ==
[2020-02-09 21:56] VITALS: BP 116/71; PULSE 87
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
== END 2020-02-10 00:01 | disposition left against medical advice (07) ==
LOC: JD.ED 21:06
DX: S22.31XA Fracture of one rib, right side, initial encounter for closed fracture (principal); S20.221A Contusion of right back wall of thorax, initial encounter; S40.011A Contusion of right shoulder, initial encounter; S70.11XA Contusion of right thigh, initial encounter; S50.811A Abrasion of right forearm, initial encounter; F41.9 Anxiety disorder, unspecified; F32.9 Major depressive disorder, single episode, unspecified; E03.9 Hypothyroidism, unspecified; F17.210 Nicotine dependence, cigarettes, uncomplicated; Z79.899 Other long term (current) drug therapy; V29.9XXA Motorcycle rider (driver) (passenger) injured in unspecified traffic accident, initial encounter
CPT/HCPCS: 99284

== ENCOUNTER 2020-02-14 23:00 | Emergency (ER) | payer OTHER ==
[2020-02-14 23:13] VITALS: BP 151/79; PULSE 86
[2020-02-14] MEDS ORDERED: HYDROmorphone 0.5 MG/0.5 ML Syringe IVPUSH ONE (23:43)
[2020-02-14] MEDS ORDERED: Sodium Chloride 0.9% 10 ML Syringe FLUSH PRN (23:43)
[2020-02-14] MEDS ORDERED: Ondansetron 4 MG/2 ML SDV IVPUSH ONE (23:43)
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
[2020-02-14] MEDS ORDERED: Ketorolac 30 MG/ML SDV IVPUSH SCH (23:45)
[2020-02-15] MEDS ORDERED: Acetaminophen/oxyCODONE 325-5 MG Tab PO ONE (00:45)
--- NOTE | 2020-02-15 06:07 | CT ---
CT chest Technique: Multiple axial sections were obtained through the chest. Intravenous contrast was not utilized. Reconstructed coronal and sagittal images were obtained. Comparison: Prior chest x-ray of 06/26/18. Findings: Nondisplaced fracture is noted within the posterior right 5th rib. Minimally displaced fracture noted within the posterior right 6th rib. Mildly displaced fracture is noted within the posterior right 7th rib and posterior right 8th rib. Minimally displaced fracture is noted within the posterior right 9th rib. No additional rib fractures are appreciated. Small right-sided pleural effusion is noted. Visualized upper abdominal structures show no discrete abnormality. No pericardial effusion is seen. No pneumothorax is identified. Minimal bibasilar atelectasis is present. Small nodule is noted within the left lung base. This is calcified and therefore represents a granuloma. This nodule measures approximately 4 mm. Impression: 1. Fractures within the 5th through 9th ribs posteriorly. 2. Mild bibasilar atelectasis. Small right-sided pleural effusion is seen. 3. Small left lower lobe pulmonary nodule measuring 4 mm which is calcified and is compatible with a granuloma. Diagnostic code #3 This report was dictated in MDT I agree with preliminary report from [facility], finalized on 02/15/20, 1:52 AM Central Daylight Time
== END 2020-02-15 01:07 | disposition home or self-care (01) ==
LOC: JD.ED 23:00
DX: S22.41XA Multiple fractures of ribs, right side, initial encounter for closed fracture (principal); V28.2XXA Unspecified motorcycle rider injured in noncollision transport accident in nontraffic accident, initial encounter; S27.1XXA Traumatic hemothorax, initial encounter; R91.1 Solitary pulmonary nodule; F17.210 Nicotine dependence, cigarettes, uncomplicated; E11.9 Type 2 diabetes mellitus without complications; E03.9 Hypothyroidism, unspecified; F32.9 Major depressive disorder, single episode, unspecified; F41.9 Anxiety disorder, unspecified; Z79.84 Long term (current) use of oral hypoglycemic drugs; Z79.899 Other long term (current) drug therapy; Z90.49 Acquired absence of other specified parts of digestive tract
CPT/HCPCS: 71250; 96374; 96375; 99285; A9270; J1170; J1885; J2405; 99283

== ENCOUNTER 2022-01-18 11:49 | Emergency (ER) | payer OTHER ==
[2022-01-18] MEDS ORDERED: Sodium Chloride 0.9% 10 ML Syringe FLUSH PRN (12:39)
[2022-01-18] MEDS ORDERED: Metoclopramide 10 MG/2 ML SDV IVPUSH ONE (12:39)
[2022-01-18] MEDS ORDERED: diphenhydrAMINE 50 MG/ML SDV IVPUSH ONE (12:40)
[2022-01-18] MEDS ORDERED: Ketorolac 30 MG/ML SDV IVPUSH ONE (12:40)
[2022-01-18 12:43] VITALS: BP 130/72; PULSE 72
[2022-01-18] MEDS ORDERED: Sodium Chloride 0.9% 1,000 ML IV SCH (12:45)
== END 2022-01-18 15:00 | disposition home or self-care (01) ==
LOC: JD.ED 11:49 → SUPCPDRO 11:49 → JD.ED 15:00
DX: R51.9 Headache, unspecified (principal); E11.9 Type 2 diabetes mellitus without complications; E03.9 Hypothyroidism, unspecified; F17.210 Nicotine dependence, cigarettes, uncomplicated; Z79.899 Other long term (current) drug therapy
CPT/HCPCS: 36415; 70450; 80053; 85025; 96374; 96375; 99284; J1200; J1885; J2765; J3490; J7030; 99282

== ENCOUNTER 2022-01-19 08:10 | Emergency (ER) | payer OTHER ==
[2022-01-19] MEDS ORDERED: diphenhydrAMINE 50 MG/ML SDV IVPUSH ONE (09:38)
[2022-01-19] MEDS ORDERED: Sodium Chloride 0.9% 10 ML Syringe FLUSH PRN (09:38)
[2022-01-19] MEDS ORDERED: Prochlorperazine 10 MG/2 ML SDV IVPUSH ONE (09:38)
[2022-01-19] MEDS ORDERED: Ketorolac 30 MG/ML SDV IVPUSH ONE (09:39)
[2022-01-19 11:58] VITALS: BP 149/83; PULSE 68
== END 2022-01-19 11:55 | disposition home or self-care (01) ==
LOC: JD.ED 08:10
DX: G43.909 Migraine, unspecified, not intractable, without status migrainosus (principal); E03.9 Hypothyroidism, unspecified; E11.9 Type 2 diabetes mellitus without complications; F17.210 Nicotine dependence, cigarettes, uncomplicated; Z90.49 Acquired absence of other specified parts of digestive tract; Z79.899 Other long term (current) drug therapy
CPT/HCPCS: 96374; 96375; 99283; J0780; J1200; J1885; J3490

== ENCOUNTER 2022-02-24 06:04 | Emergency (ER) | payer OTHER ==
[2022-02-24] MEDS ORDERED: Ketorolac 15 MG/ML SDV IM ONE (06:27)
[2022-02-24 06:43] VITALS: BP 114/69; PULSE 79
== END 2022-02-24 06:42 | disposition home or self-care (01) ==
LOC: JD.ED 06:04
DX: J32.9 Chronic sinusitis, unspecified (principal); E11.9 Type 2 diabetes mellitus without complications; E03.9 Hypothyroidism, unspecified; F17.210 Nicotine dependence, cigarettes, uncomplicated; Z79.899 Other long term (current) drug therapy
CPT/HCPCS: 96372; 99283; J1885

== ENCOUNTER 2022-02-27 13:05 | Emergency (ER) | payer OTHER ==
[2022-02-27 13:19] VITALS: BP 146/73; PULSE 84
[2022-02-27] MEDS ORDERED: Sodium Chloride 0.9% 10 ML Syringe FLUSH PRN (13:28)
[2022-02-27] MEDS ORDERED: Dexamethasone 10 MG/ML SDV IVPUSH ONE (13:29)
[2022-02-27] MEDS ORDERED: cefTRIAXone 2 GM in Sodium Chloride 0.9% 100 ML IV ONE (13:29)
[2022-02-27] MEDS ORDERED: diphenhydrAMINE 50 MG/ML SDV IVPUSH ONE (13:30)
[2022-02-27] MEDS ORDERED: Metoclopramide 10 MG/2 ML SDV IVPUSH ONE (13:30)
[2022-02-27] MEDS ORDERED: HYDROmorphone 0.5 MG/0.5 ML Syringe IVPUSH ONE (13:31)
== END 2022-02-27 15:20 | disposition home or self-care (01) ==
LOC: JD.ED 13:05
DX: J01.40 Acute pansinusitis, unspecified (principal); H65.03 Acute serous otitis media, bilateral; F17.210 Nicotine dependence, cigarettes, uncomplicated; Z79.899 Other long term (current) drug therapy; Z90.49 Acquired absence of other specified parts of digestive tract
CPT/HCPCS: 96365; 96375; 99283; J0696; J1100; J1170; J1200; J2765; J3490

== ENCOUNTER 2022-08-28 15:44 | Emergency (ER) | payer OTHER ==
[2022-08-28 15:57] VITALS: BP 101/61; PULSE 85
[2022-08-28] MEDS ORDERED: predniSONE 20 MG Tab PO ONE (17:45)
[2022-08-28] MEDS ORDERED: Meclizine 25 MG Tab PO ONE (17:46)
[2022-08-28] MEDS ORDERED: Cephalexin 500 MG Cap PO ONE (18:39)
[2022-08-28 19:40] LABS: CORONAVIRUS COVID-19 NAA NEGATIVE (NEGATIVE)
== END 2022-08-28 20:15 | disposition home or self-care (01) ==
LOC: JD.ED 15:44
DX: R53.81 Other malaise (principal); E11.9 Type 2 diabetes mellitus without complications; E03.9 Hypothyroidism, unspecified; Z72.0 Tobacco use; Z79.899 Other long term (current) drug therapy; Z20.822 Contact with and (suspected) exposure to COVID-19
CPT/HCPCS: 0240U; 36415; 70450; 71045; 80053; 81001; 83605; 83690; 83735; 84484; 85025; 87086; 93005; 99284; A9270; J7512; 93010

== ENCOUNTER 2023-05-12 21:48 | Emergency (ER) | payer BC ==
[2023-05-12] MEDS ORDERED: cefTRIAXone 2 GM in Sodium Chloride 0.9% 100 ML IV ONE (22:24)
[2023-05-12] MEDS ORDERED: Sodium Chloride 0.9% 1,000 ML IV SCH (22:30)
[2023-05-12] MEDS ORDERED: Metoclopramide 10 MG/2 ML SDV IVPUSH ONE (22:35)
[2023-05-12] MEDS ORDERED: HYDROmorphone 1 MG/ML Syringe IVPUSH ONE (22:35)
[2023-05-12] MEDS ORDERED: diphenhydrAMINE 50 MG/ML SDV IVPUSH ONE (22:36)
[2023-05-12] MEDS ORDERED: Acetaminophen 325 MG Tab PO ONE (22:41)
[2023-05-12 23:05] LABS: HEMOGLOBIN A1C 6.1 %
[2023-05-12 23:20] LABS: ALBUMIN 3.4 g/dl (3.4-5.0); ANION GAP 17.9 (5-15); BILIRUBIN TOTAL 0.4 mg/dL (0.2-1.0); BUN/CREATININE RATIO 18.9 (14-18); C-REACTIVE PROTEIN 2.7 mg/dL (<1.0); CREATININE 0.9 mg/dL (0.55-1.02); EST CRCL DRUG DOSING (CG) 63.03 mL/min; MAGNESIUM 1.8 mg/dL (1.8-2.4); POTASSIUM,K 3.9 mEq/L (3.5-5.1); PROTEIN TOTAL,TP 6.9 g/dl (6.4-8.2)
[2023-05-12 23:43] LABS: BASOPHILS ABSOLUTE AUTO 0.1 K/mm3 (0.0-0.2); BASOPHILS PERCENT AUTO 0.7 % (0.0-1.0); EOSINOPHILS ABSOLUTE AUTO 0.1 K/mm3 (0.0-0.4); EOSINOPHILS PERCENT AUTO 0.9 % (0.0-6.0); HEMATOCRIT 34.7 % (37.0-47.0); HEMOGLOBIN 11.6 gm/dl (12.0-16.0); IMMATURE GRAN ABSOLUTE AUTO 0.05 K/mm3 (0.00-0.05); IMMATURE GRAN PERCENT AUTO 0.5 % (0.0-0.4); LYMPHOCYTES ABSOLUTE AUTO 1.3 K/mm3 (1.0-4.8); LYMPHOCYTES PERCENT AUTO 11.7 % (24.0-44.0); MEAN CORPUSCULAR HEMOGLOBIN 30.2 pg (28.0-32.0); MEAN CORPUSCULAR HGB CONC 33.4 g/dl (32.0-36.0); MEAN CORPUSCULAR VOLUME 90.4 fl (83.0-99.0); MEAN PLATELET VOLUME 9.2 fl (9.4-12.3); MONOCYTES ABSOLUTE AUTO 0.6 K/mm3 (0.0-0.8); MONOCYTES PERCENT AUTO 5.8 % (0.0-8.0); NEUTROPHILS ABSOLUTE AUTO 8.6 K/mm3 (1.8-7.7); NEUTROPHILS PERCENT AUTO 80.4 % (41.0-71.0); PLATELET COUNT,PLT 281 K/mm3 (150-400); RED BLOOD CELL COUNT 3.84 M/mm3 (4.10-5.30); WHITE BLOOD CELL COUNT,WBC 10.69 K/mm3 (3.9-11.3)
[2023-05-13 01:28] VITALS: BP 93/57; PULSE 92
== END 2023-05-13 00:50 | disposition home or self-care (01) ==
LOC: JD.ED 21:48
DX: N12 Tubulo-interstitial nephritis, not specified as acute or chronic (principal); N39.0 Urinary tract infection, site not specified; E11.9 Type 2 diabetes mellitus without complications; E03.9 Hypothyroidism, unspecified; Z79.899 Other long term (current) drug therapy
CPT/HCPCS: 36415; 80053; 83036; 83735; 85025; 86140; 87040; 96361; 96365; 96375; 99284; A9270; J0696; J1170; J1200; J2765; J3490; J7030

== ENCOUNTER 2024-07-13 17:41 | Emergency (ER) | payer BC, OTHER ==
[2024-07-13 18:54] VITALS: BP 159/84; PULSE 76
[2024-07-13] MEDS: Ketorolac 60 MG/2 ML SDV IM ONE (19:28)
== END 2024-07-13 21:44 | disposition home or self-care (01) ==
LOC: JD.ED 17:41
DX: J34.89 Other specified disorders of nose and nasal sinuses (principal); J44.9 Chronic obstructive pulmonary disease, unspecified; E11.9 Type 2 diabetes mellitus without complications; E03.9 Hypothyroidism, unspecified; F17.210 Nicotine dependence, cigarettes, uncomplicated; Z90.49 Acquired absence of other specified parts of digestive tract; Z79.52 Long term (current) use of systemic steroids; Z79.890 Hormone replacement therapy; Z79.899 Other long term (current) drug therapy
CPT/HCPCS: 70486; 87428; 96372; 99284; J1885

== ENCOUNTER 2024-09-08 19:19 | Emergency (ER) | payer OTHER ==
[2024-09-08 19:31] VITALS: PULSE 89
[2024-09-08 20:32] VITALS: BP 133/79
== END 2024-09-08 20:32 | disposition home or self-care (01) ==
LOC: JD.ED 19:19
DX: M48.061 Spinal stenosis, lumbar region without neurogenic claudication (principal); J44.9 Chronic obstructive pulmonary disease, unspecified; E78.00 Pure hypercholesterolemia, unspecified; E11.9 Type 2 diabetes mellitus without complications; E03.9 Hypothyroidism, unspecified; Z79.890 Hormone replacement therapy; Z79.899 Other long term (current) drug therapy; Z90.49 Acquired absence of other specified parts of digestive tract
CPT/HCPCS: 99283

== ENCOUNTER 2024-09-19 20:40 | Emergency (ER) | payer OTHER ==
[2024-09-19 20:55] VITALS: BP 156/84; PULSE 83
[2024-09-19 21:13] LABS: APPEARANCE,URINE CLEAR (Clear); BILIRUBIN,URINE NEGATIVE (Negative); COLOR,URINE YELLOW (Yellow); GLUCOSE,URINE NEGATIVE (Negative); KETONES,URINE NEGATIVE (Negative); LEUKOCYTE ESTERASE,URINE NEGATIVE (Negative); NITRITE,URINE NEGATIVE (Negative); OCCULT BLOOD,URINE NEGATIVE (Negative); PH,URINE 6.5 (5.0-8.0); PROTEIN,URINE NEGATIVE (Negative); UROBILINOGEN,URINE 0.2 (0.2-1.0)
[2024-09-19 21:26] LABS: BASOPHILS ABSOLUTE AUTO 0.1 K/mm3 (0.0-0.2); BASOPHILS PERCENT AUTO 1.3 % (0.0-1.0); EOSINOPHILS ABSOLUTE AUTO 0.2 K/mm3 (0.0-0.4); EOSINOPHILS PERCENT AUTO 2.2 % (0.0-6.0); HEMATOCRIT 40.1 % (37.0-47.0); HEMOGLOBIN 12.9 gm/dl (12.0-16.0); IMMATURE GRAN ABSOLUTE AUTO 0.05 K/mm3 (0.00-0.05); IMMATURE GRAN PERCENT AUTO 0.5 % (0.0-0.4); LYMPHOCYTES ABSOLUTE AUTO 2.7 K/mm3 (1.0-4.8); LYMPHOCYTES PERCENT AUTO 27.9 % (24.0-44.0); MEAN CORPUSCULAR HEMOGLOBIN 29.7 pg (28.0-32.0); MEAN CORPUSCULAR HGB CONC 32.2 g/dl (32.0-36.0); MEAN CORPUSCULAR VOLUME 92.2 fl (83.0-99.0); MONOCYTES ABSOLUTE AUTO 0.8 K/mm3 (0.0-0.8); MONOCYTES PERCENT AUTO 8.6 % (0.0-8.0); NEUTROPHILS ABSOLUTE AUTO 5.8 K/mm3 (1.8-7.7); NEUTROPHILS PERCENT AUTO 59.5 % (41.0-71.0); PLATELET COUNT,PLT 227 K/mm3 (150-400); RED BLOOD CELL COUNT 4.35 M/mm3 (4.10-5.30); WHITE BLOOD CELL COUNT,WBC 9.67 K/mm3 (3.9-11.3)
[2024-09-19 21:55] LABS: ALBUMIN 3.3 g/dl (3.4-5.0); ANION GAP 11.8 (5-15); BILIRUBIN TOTAL 0.3 mg/dL (0.2-1.0); BUN/CREATININE RATIO 14.4 (14-18); CALCIUM 9.1 mg/dL (8.5-10.1); CREATININE 0.9 mg/dL (0.55-1.02); EST CRCL DRUG DOSING (CG) 59.89 mL/min; POTASSIUM,K 3.8 mEq/L (3.5-5.1); PROTEIN TOTAL,TP 6.7 g/dl (6.4-8.2)
[2024-09-19 22:23] LABS: TSH 1.405 uIU/mL (0.358-3.74)
== END 2024-09-19 23:08 | disposition home or self-care (01) ==
LOC: JD.ED 20:40
DX: I10 Essential (primary) hypertension (principal); J44.9 Chronic obstructive pulmonary disease, unspecified; E11.9 Type 2 diabetes mellitus without complications; E03.9 Hypothyroidism, unspecified; F17.210 Nicotine dependence, cigarettes, uncomplicated; Z90.49 Acquired absence of other specified parts of digestive tract; Z79.890 Hormone replacement therapy; Z79.899 Other long term (current) drug therapy; Z79.84 Long term (current) use of oral hypoglycemic drugs
CPT/HCPCS: 36415; 80053; 81003; 84443; 85025; 93005; 93010; 99283; 99284

== ENCOUNTER 2025-02-07 19:12 | Emergency (ER) | payer OTHER ==
[2025-02-07] MEDS ORDERED: Sodium Chloride 0.9% 10 ML Syringe FLUSH PRN (19:30)
[2025-02-07] MEDS: EPINEPHrine 1 MG/ML SDV IM ONE (19:51)
[2025-02-07] MEDS: methylPREDNISolone Sodium Succinate 125 MG/2 ML SDV IVPUSH ONE (19:51)
[2025-02-07] MEDS: diphenhydrAMINE 50 MG/ML SDV IVPUSH ONE (19:51)
[2025-02-07 20:08] LABS: BASOPHILS ABSOLUTE AUTO 0.1 K/mm3 (0.0-0.2); BASOPHILS PERCENT AUTO 0.7 % (0.0-1.0); EOSINOPHILS ABSOLUTE AUTO 0.1 K/mm3 (0.0-0.4); EOSINOPHILS PERCENT AUTO 1.4 % (0.0-6.0); IMMATURE GRAN ABSOLUTE AUTO 0.04 K/mm3 (0.00-0.05); IMMATURE GRAN PERCENT AUTO 0.5 % (0.0-0.4); LYMPHOCYTES ABSOLUTE AUTO 2.3 K/mm3 (1.0-4.8); LYMPHOCYTES PERCENT AUTO 26.9 % (24.0-44.0); MEAN PLATELET VOLUME 9.2 fl (9.4-12.3); MONOCYTES ABSOLUTE AUTO 0.8 K/mm3 (0.0-0.8); MONOCYTES PERCENT AUTO 9.1 % (0.0-8.0); NEUTROPHILS ABSOLUTE AUTO 5.1 K/mm3 (1.8-7.7); NEUTROPHILS PERCENT AUTO 61.4 % (41.0-71.0); NRBC ABSOLUTE 0.00 (0.00-0.02); NRBC PERCENT 0.0 % (0.0-0.2); PLATELET COUNT,PLT 252 K/mm3 (150-400); RED BLOOD CELL COUNT 4.94 M/mm3 (4.10-5.30); WHITE BLOOD CELL COUNT,WBC 8.35 K/mm3 (3.9-11.3)
[2025-02-07 20:26] LABS: A/G RATIO 1.1 (1-2); ALANINE AMINOTRANSFERASE,ALT 48.0 U/L (14-59); ASPARTATE AMNIOTRANSFERASE,AST 20.0 U/L (15-37); BILIRUBIN TOTAL 0.4 mg/dL (0.2-1.0); BLOOD UREA NITROGEN,BUN 12.0 mg/dL (7-18); CARBON DIOXIDE,CO2 26.0 mEq/L (21-32); CHLORIDE,CL 108.0 mEq/L (98-107); CREATININE 1.0 mg/dL (0.55-1.02); EST CRCL DRUG DOSING (CG) 56.0 mL/min; ESTIMATED GFR 63.0 mL/min (>60); GLUCOSE RANDOM 112.0 mg/dL (70-99); POTASSIUM,K 3.6 mEq/L (3.5-5.1); PROTEIN TOTAL,TP 6.9 g/dl (6.4-8.2); SODIUM,NA 145.0 mEq/L (136-145)
[2025-02-07 23:08] VITALS: BP 130/80; PULSE 80
== END 2025-02-07 23:07 | disposition home or self-care (01) ==
LOC: JD.ED 19:12
DX: T78.40XA Allergy, unspecified, initial encounter (principal); E78.00 Pure hypercholesterolemia, unspecified; E11.9 Type 2 diabetes mellitus without complications; E03.9 Hypothyroidism, unspecified; Z79.890 Hormone replacement therapy; Z79.899 Other long term (current) drug therapy; Z90.49 Acquired absence of other specified parts of digestive tract
CPT/HCPCS: 36415; 80053; 85025; 96372; 96374; 96375; 99284; J0171; J1200; J1308; J2919; J7030; 99283

== ENCOUNTER 2025-04-06 09:23 | Emergency (ER) | payer OTHER ==
[2025-04-06 10:22] LABS: BASOPHILS ABSOLUTE AUTO 0.1 K/mm3 (0.0-0.2); BASOPHILS PERCENT AUTO 0.9 % (0.0-1.0); EOSINOPHILS ABSOLUTE AUTO 0.1 K/mm3 (0.0-0.4); EOSINOPHILS PERCENT AUTO 1.4 % (0.0-6.0); IMMATURE GRAN ABSOLUTE AUTO 0.02 K/mm3 (0.00-0.05); IMMATURE GRAN PERCENT AUTO 0.3 % (0.0-0.4); LYMPHOCYTES ABSOLUTE AUTO 1.9 K/mm3 (1.0-4.8); LYMPHOCYTES PERCENT AUTO 28.9 % (24.0-44.0); MEAN PLATELET VOLUME 9.6 fl (9.4-12.3); MONOCYTES ABSOLUTE AUTO 0.6 K/mm3 (0.0-0.8); MONOCYTES PERCENT AUTO 9.2 % (0.0-8.0); NEUTROPHILS ABSOLUTE AUTO 3.9 K/mm3 (1.8-7.7); NEUTROPHILS PERCENT AUTO 59.3 % (41.0-71.0); NRBC ABSOLUTE 0.00 (0.00-0.02); NRBC PERCENT 0.0 % (0.0-0.2); PLATELET COUNT,PLT 224 K/mm3 (150-400); RED BLOOD CELL COUNT 4.44 M/mm3 (4.10-5.30); WHITE BLOOD CELL COUNT,WBC 6.55 K/mm3 (3.9-11.3)
[2025-04-06] MEDS: Sodium Chloride 0.9% 10 ML Syringe FLUSH PRN (10:28)
[2025-04-06 10:49] LABS: A/G RATIO 1.2 (1-2); ALANINE AMINOTRANSFERASE,ALT 47.0 U/L (14-59); ASPARTATE AMNIOTRANSFERASE,AST 21.0 U/L (15-37); BILIRUBIN TOTAL 0.5 mg/dL (0.2-1.0); BLOOD UREA NITROGEN,BUN 11.0 mg/dL (7-18); CARBON DIOXIDE,CO2 25.0 mEq/L (21-32); CHLORIDE,CL 107.0 mEq/L (98-107); CREATININE 0.8 mg/dL (0.55-1.02); EST CRCL DRUG DOSING (CG) 69.09 mL/min; ESTIMATED GFR 82.0 mL/min (>60); GLUCOSE RANDOM 102.0 mg/dL (70-99); POTASSIUM,K 3.7 mEq/L (3.5-5.1); PROTEIN TOTAL,TP 6.5 g/dl (6.4-8.2); SODIUM,NA 137.0 mEq/L (136-145)
[2025-04-06] MEDS: Iopamidol 612 MG/ML 100 ML Bottle IVPUSH ONE (11:13)
[2025-04-06 11:15] LABS: APPEARANCE,URINE CLEAR (Clear); GLUCOSE,URINE NEGATIVE (Negative); OCCULT BLOOD,URINE NEGATIVE (Negative)
[2025-04-06 11:28] LABS: SQUAMOUS EPITHELIAL CELLS,UR 20-30 /hpf (0-5)
[2025-04-06 15:21] VITALS: BP 110/81; PULSE 74
== END 2025-04-06 12:45 | disposition home or self-care (01) ==
LOC: JD.ED 09:23
DX: M54.50 Low back pain, unspecified (principal); R10.9 Unspecified abdominal pain; E11.9 Type 2 diabetes mellitus without complications; E03.9 Hypothyroidism, unspecified; J44.9 Chronic obstructive pulmonary disease, unspecified; Z79.899 Other long term (current) drug therapy; Z90.49 Acquired absence of other specified parts of digestive tract
CPT/HCPCS: 36415; 74177; 80053; 81001; 83690; 85025; 96361; 96374; 99284; J2270; J7030; Q9967

== ENCOUNTER 2025-05-09 07:15 | Day surgery (SDC) | payer OTHER ==
[2025-05-09] MEDS: Tetracaine HCl/PF 0.5% 4 ML Bottle EYEBOTH SCH (07:11)
[2025-05-09] MEDS: Lidocaine 1% PF 2 ML SDV INJECT SCH (07:12)
[2025-05-09] MEDS: Cefuroxime 10 MG/ML SYRINGE EYELF SCH (07:12)
[2025-05-09] MEDS: Polymyxin B/Trimethoprim 10 ML Bottle EYELF SCH (07:12)
[2025-05-09] MEDS: Pilocarpine 4% Ophth Soln 15 ML Bot EYELF SCH (07:12)
[2025-05-09] MEDS: Tropicamide 1% Ophth Soln 3 ML Bottle EYELF SCH (07:45)
[2025-05-09 07:47] VITALS: BP 124/74; PULSE 88
== END 2025-05-09 09:17 ==
LOC: JD.SDS 07:15
PROVIDERS: ATTEND Ophthalmology
DX: E11.36 Type 2 diabetes mellitus with diabetic cataract (principal); H25.813 Combined forms of age-related cataract, bilateral; E78.00 Pure hypercholesterolemia, unspecified; Z88.5 Allergy status to narcotic agent; Z79.899 Other long term (current) drug therapy; Z79.890 Hormone replacement therapy
CPT/HCPCS: A9270-GY; J0697; J3490; V2632

== ENCOUNTER 2025-06-06 15:40 | Day surgery (SDC) | payer OTHER ==
[~2025-06-06 15:40] MED LIST changes: -Lactated Ringers 1,000 ML IV SCH; -Lidocaine 1%/Sod Bicarbonate in NS 8.4% 1 ML Syringe IV PRN; +Pilocarpine 4% Ophth Soln 15 ML Bot EYERT SCH; -Sodium Chloride 0.9% 10 ML Syringe FLUSH PRN
[2025-06-06 15:53] VITALS: BP 144/94
[2025-06-06] MEDS: Polymyxin B/Trimethoprim 10 ML Bottle EYERT SCH (15:53)
[2025-06-06] MEDS: Tropicamide 1% Ophth Soln 3 ML Bottle EYERT SCH (16:09)
[2025-06-06] MEDS: Tetracaine HCl/PF 0.5% 4 ML Bottle EYEBOTH SCH (16:55)
[2025-06-06] MEDS: Lidocaine 1% PF 2 ML SDV INJECT SCH (17:16)
[2025-06-06] MEDS: Cefuroxime 10 MG/ML SYRINGE EYERT SCH (17:28)
[2025-06-06 17:38] VITALS: PULSE 77
== END 2025-06-06 17:39 ==
LOC: JD.SDS 15:40
PROVIDERS: ATTEND Ophthalmology
DX: E11.36 Type 2 diabetes mellitus with diabetic cataract (principal); H25.811 Combined forms of age-related cataract, right eye; H52.31 Anisometropia; Z96.1 Presence of intraocular lens; H18.593 Other hereditary corneal dystrophies, bilateral; E78.00 Pure hypercholesterolemia, unspecified; F17.210 Nicotine dependence, cigarettes, uncomplicated; Z88.6 Allergy status to analgesic agent; Z79.899 Other long term (current) drug therapy
CPT/HCPCS: A9270-GY; J0697; J3490